=== PATIENT | female | born 1995 | race Two or more races ===

== ENCOUNTER 2020-01-28 02:54 | Emergency (ER) | payer BC, OTHER ==
[~2020-01-28] VITALS: Ht 167.6 cm; Wt 56.7 kg
[~2020-01-28 02:54] MED LIST: ACUTANE; OXYCODONE
--- NOTE | 2020-01-28 03:06 | NUR ---
PT. TO THE ED WITH C/O VAGINAL BLEEDING. REPORTS A FEW WEEKS AGO. WAS 9 WEEKS . NO RECENT INTERCOURSE. REPORTS GOING THROUGH [facility] IN THE LAST SEVERAL HOURS.
--- NOTE | 2020-01-28 03:32 | NUR ---
PATIENT TO US
[2020-01-28 03:35] LABS: BASOPHILS # (AUTO) 0.05 x10^3/uL (0-0.1); BASOPHILS % (AUTO) 1 % (0-1); EOSINOPHILS # (AUTO) 0.04 x10^3/uL (0-0.4); EOSINOPHILS % (AUTO) 1 % (1-7); LYMPHOCYTES # (AUTO) 1.31 x10^3/uL (1-3.4); LYMPHOCYTES % (AUTO) 20 % (22-44); MD NO; MEAN CORPUSCULAR HEMOGLOBIN 30.4 pg (27.0-34.8); MEAN CORPUSCULAR HGB CONC 33.7 g/dL (32.4-35.8); MEAN CORPUSCULAR VOLUME 90.3 fL (80-100); MEAN PLATELET VOLUME 7.6 fL (7.4-10.4); MONOCYTES # (AUTO) 0.34 x10^3/uL (0.2-0.8); MONOCYTES % (AUTO) 5 % (2-9); NEUTROPHILS # (AUTO) 4.79 x10^3/uL (1.8-6.8); NEUTROPHILS % (AUTO) 74 % (42-75); PLATELET COUNT 318 x10^3/uL (130-400); RED BLOOD COUNT 4.74 x10^6/uL (3.82-5.3); RED CELL DISTRIBUTION WIDTH 12.6 % (9.6-15.2)
[2020-01-28 03:48] LABS: ALANINE AMINOTRANSFERASE 15 U/L (12-78); ALBUMIN 4.3 g/dL (3.4-5.0); ANION GAP 10 mmol/L (5-15); CALCIUM 9.3 mg/dL (8.5-10.1); CHLORIDE 109 mmol/L (98-107); CREATININE 0.85 mg/dL (0.55-1.02)
--- NOTE | 2020-01-28 03:52 | NUR ---
PATIENT RETURNED FROM US
[2020-01-28 03:53] LABS: ALKALINE PHOSPHATASE 56 U/L (45-117); BILIRUBIN,TOTAL 0.4 mg/dL (0.2-1.0); TOTAL PROTEIN 7.7 g/dL (6.4-8.2)
[2020-01-28 05:09] VITALS: BP 113/58
== END 2020-01-28 05:12 | disposition home or self-care (01) ==
LOC: ED 04:12
DX: N92.4 Excessive bleeding in the premenopausal period (principal)
CPT/HCPCS: 36415; 76830; 80053; 84702; 85025; 86850; 86900; 99284

== ENCOUNTER 2021-04-13 07:22 | Emergency (ER) | payer OTHER ==
[~2021-04-13] VITALS: Ht 167.6 cm; Wt 55.8 kg
--- NOTE | 2021-04-13 08:10 | NUR ---
PT PRESENTS TO ED WITH C/O CHEST PAIN AFTER TAKING COCAINE YESTERDAY AFTERNOON/ ECSTASY APPROX 4 HRS AGO AND DRINKING. [place], GAVE 324 ASA, ZOFRAN, LITTER OF FLUID. PT STILL WITH CHEST PRESSURE. PT A&O, RESPS EVEN AND UNLABROED, VSS, MARKN. CHELSEA NEELY AT BEDSIDE FOR INITIAL EVAL/ASSESSMENT.
[2021-04-13] MEDS ORDERED: SODIUM CHLORIDE FLUSH 10ML SYR IVF ONE (08:30)
[2021-04-13] MEDS ORDERED: SODIUM CHLORIDE 0.9% 1,000 ML IV ONE (08:30)
[2021-04-13 08:46] LABS: BASOPHILS % (AUTO) 1 % (0-1); EOSINOPHILS % (AUTO) 2 % (1-7); LYMPHOCYTES % (AUTO) 15 % (22-44); MEAN CORPUSCULAR HEMOGLOBIN 30.4 pg (27.0-34.8); MEAN CORPUSCULAR HGB CONC 35.5 g/dL (32.4-35.8); MEAN PLATELET VOLUME 7.1 fL (7.4-10.4); MONOCYTES % (AUTO) 7 % (2-9); NEUTROPHILS % (AUTO) 76 % (42-75); PLATELET COUNT 277 x10^3/uL (130-400); RED BLOOD COUNT 4.95 x10^6/uL (3.82-5.3); RED CELL DISTRIBUTION WIDTH 13.6 % (9.6-15.2)
[2021-04-13 08:54] LABS: ALANINE AMINOTRANSFERASE 27 U/L (12-78); ALBUMIN 4.7 g/dL (3.4-5.0); ANION GAP 6 mmol/L (5-15); CALCIUM 9.1 mg/dL (8.5-10.1); CHLORIDE 108 mmol/L (98-107); CREATININE 0.72 mg/dL (0.55-1.02)
[2021-04-13 08:59] LABS: ALKALINE PHOSPHATASE 55 U/L (45-117); BILIRUBIN,TOTAL 1.2 mg/dL (0.2-1.0); CREATINE KINASE, TOTAL 461 U/L (26-192); TOTAL PROTEIN 8.1 g/dL (6.4-8.2); TROPONIN I < 0.015 ng/mL (0.000-0.045)
[2021-04-13 09:37] LABS: MICROSCOPIC INDICATED
--- NOTE | 2021-04-13 09:52 | NUR ---
REPORT FROM FACUNDO CASTELLON. ASSUMED CARE
[2021-04-13 10:01] VITALS: BP 116/65
[2021-04-13 10:55] LABS: TROPONIN I < 0.015 ng/mL (0.000-0.045)
== END 2021-04-13 11:50 | disposition home or self-care (01) ==
LOC: ED 08:54
DX: N30.00 Acute cystitis without hematuria (principal); R07.89 Other chest pain; R00.0 Tachycardia, unspecified
CPT/HCPCS: 36415; 71045; 80053; 81001; 82550; 83690; 84484; 84703; 85025; 87077; 87086; 93005; 96360; 99285; J7030; 87186